=== PATIENT | male | born 1980 | race Caucasian/White ===

== ENCOUNTER 2022-08-18 08:35 | Emergency (ER) | payer OTHER, SELFPAY ==
--- NOTE | ~2022-08-18 | XR_ITS ---
EXAMINATION: XR CHEST CLINICAL INFORMATION: Chest pain COMPARISON: None available. TECHNIQUE: 2 views of the chest were obtained. FINDINGS: Cardiac and mediastinal silhouette is within normal limits. No evidence of focal consolidation, effusion, edema. No significant pneumothorax is seen. No acute osseous abnormality.. XR/XR chest 2V IMPRESSION: No evidence of acute pulmonary process.
--- NOTE | 2022-08-18 08:36 | ECG_ITS ---
Test Reason : SOB/CP Blood Pressure : / mmHG Vent. Rate : 115 BPM Atrial Rate : 115 BPM P-R Int : 172 ms QRS Dur : 100 ms QT Int : 328 ms P-R-T Axes : 062 019 028 degrees QTc Int : 453 ms Sinus tachycardia Otherwise normal ECG No previous ECGs available Referred By: Generic ED Physician Electronically Signed By:LEONELA GARZA
[2022-08-18 08:49] LABS: Glucose, Whole Blood 152 mg/dL (60-115)
[2022-08-18 08:55] VITALS: BP 154/92; PULSE 118; RESP 19; TEMP 36.6; O2SAT 98; BMI 30.3
--- NOTE | 2022-08-18 09:17 | ED.CHESTPAIN ---
HPI - Chest Pain General Chief Complaint: Chest Pain Stated Complaint: chest pain Time Seen by Provider: 08/18/22 09:16 Source: patient Mode of arrival: ambulatory Limitations: no limitations History of Present Illness HPI narrative: Patient is a 42-year-old male with no past history presenting with left sided chest pain and diaphoresis which began this morning. States he initially felt weak/lightheaded this morning but related this to not having had breakfast. Reports history of syncope in the distant past when he has not eaten. Was meeting family to drive to [place] and stopped at [employer] for a breakfast sandwich and coffee. States did not feel symptoms improve after eating. As he continued driving he developed intermittent left anterior chest pain and pressure radiating to left arm and began sweating. States episodes of pain lasted several seconds at a time. Denies abdominal pain, nausea, vomiting, diarrhea or constipation. Denies dyspnea. Denies dizziness. Denies syncope. Reports similar episodes of chest pain in the past but states today's episode was more severe and lasted for a longer period of time. MD complaint: chest pain Onset (ago): hour(s) Timing of current episode: episodic Prior episodes: Yes Onset: during rest Pain location: left chest Pain radiation: left arm Severity: moderate Pain scale (0-10): 6 Quality: heaviness Relieving factors: nothing Exacerbating factors: nothing Associated symptoms: diaphoresis Treatment prior to arrival: none Related Data Allergies Allergy/AdvReac Type Severity Reaction Status Date / Time No Known Allergies Allergy Verified 08/18/22 08:54 Review of Systems Review of Systems: As per HPI. Yes all other systems are reviewed and are negative Constitutional: Constitutional: Reports as per HPI [facility] Social History Social History Alcohol intake: current Alcohol intake frequency: a few times a week Smoked in Last 30 Days: No Use of substances other than those prescribed or required for medical reasons: No Advance Directives: No Advance Directives Information Provided: Yes Physical Exam Vital Signs: Vital Signs: Last Vital Signs Temp 97.9 F 08/18/22 14:00 Pulse 84 08/18/22 14:00 Resp 18 08/18/22 14:00 BP 146/89 H 08/18/22 14:00 Pulse Ox 96 08/18/22 14:00 O2 Del Method Room Air 08/18/22 14:00 BMI result Body Mass Index 30.3 Vital signs have been reviewed and appear to be correct. Blood pressure elevated. Heart rate tachycardic. Respiratory rate normal. Temperature normal. Oxygen saturation normal. Const: General: cooperative, healthy appearing and no acute distress Orientation/consciousness: oriented to person, oriented to place, oriented to time and patient oriented x3 Limitations: no limitations HEENT: Head: Yes normocephalic and Yes atraumatic Ears: external ears normal General nose exam: Normal external nose present Face and sinus: Yes face symmetric Mouth: oropharynx normal and moist mucous membranes Throat: Yes uvula midline Eyes: Pupils: Equal, round and reactive pupils present Neck: Neck: Yes normal visual inspection and Yes supple Chest: Chest palpation & inspection: normal inspection of the chest and normal palpation of entire chest wall Resp: Effort & Inspection: normal respiratory effort and able to speak in complete sentences Auscultation: clear to auscultation bilaterally Cardio: Rate: regular rate Rhythm: regular rhythm Heart sounds: S1 normal heart sound present and S2 normal heart sound present GI: Palpation (GI): Soft to palpation and nontender Auscultation: normoactive bowel sounds : General: Yes no CVA tenderness Back/Spine/Pelvis: Back: no CVA tenderness Skin: General skin exam: elasticity normal and turgor normal Neuro: General: oriented to person, oriented to place, oriented to time, patient oriented x3, moves all extremities, no focal motor deficits and CN's II-XI intact bilaterally Cranial nerves: Yes Equal, round and reactive pupils present Cognition (Neuro): normal cognition Extrem: General: Yes full ROM, Yes no pedal edema and Yes no calf tenderness Psych: Mental Status: mental status grossly normal Affect: normal affect Thought process: Normal thought process present Course Course Course Narrative: 10:09 Initial troponin negative, will obtain delta trop. Medical Decision Making Medical Decision Making [facility] [place] Narrative: Patient is a 42-year-old male with no past history presenting with left sided chest pain and diaphoresis which began this morning. On exam patient is awake, A+Ox3, nontoxic appearing, HR slightly elevated, BP elevated, VS otherwise WNL, pt afebrile, LS CTA throughout, HR regular, 2+ peripheral pulses, abdomen is soft and nontender, no pedal edema or calf tenderness. EKG shows sinus tachycardia, no evidence of STEMI. Concern for ACS, electrolyte abnomality, GERD. Less likely pneumonia, pneumothorax. Unlikely aortic dissection, esophageal rupture, PE (low risk [place]), cardiac tamponade, endocarditis/pericarditis. Plan: Labs including troponin, CXR, reassess 14:29 Delta troponin negative, HEART score 0. Feel patient is stable for discharge home. Will refer to cardiology as patient has had prior similar episodes. All results discussed and all questions answered. Return precautions discussed at bedside. Patient verbalized understanding of and agreement with plan. Differential Diagnosis Differential Diagnoses: The differential diagnosis associated with the presentation includes As above. Lab Data MDM Lab Attestation statement: I reviewed the patient's lab results. 08/18/22 09:32 08/18/22 09:32 Labs: Lab Results 08/18/22 08/18/22 08/18/22 Range/Units 08:45 09:32 09:32 WBC 5.5 (4.8-10.8) X10*3/uL RBC 5.22 (4.60-5.80) X10*6/uL Hgb 16.0 (14.0-18.0) g/dl Hct 47.9 (42.0-52.0) % MCV 91.8 (80.0-98.0) fL MCH 30.7 (27.0-33.0) pg MCHC 33.4 (31.0-36.0) g/dl RDW 13.2 (11.0-16.0) % Plt Count 229 (160-400) X10*3/uL MPV 10.0 (9.4-12.4) fL Immature Gran % (Auto) 0.7 H (0.0-0.4) % Neut % (Auto) 48.9 (45-73) % Lymph % (Auto) 31.7 (20-40) % [place] % (Auto) 13.6 H (2-11) % Eos % (Auto) 3.8 (0-4) % Baso % (Auto) 1.3 (0-2) % Lymph # (Auto) 1.7 (1.2-4.9) X10*3/uL [place] # (Auto) 0.7 (0.1-1.2) X10*3/uL Eos # (Auto) 0.2 (0.0-0.4) X10*3/uL Baso # (Auto) 0.1 (0.0-0.2) X10*3/uL Abs Immat Gran (auto) 0.04 H (0.00-0.03) X10*3/uL Absolute Neuts (auto) 2.7 (2.0-8.3) x10*3/uL Absolute Nucleated RBC 0.000 (0.0-0.012) X10*3/uL Nucleated RBC % (auto) 0.0 (0.0-0.2) /100WBC Sodium 143 (135-145) mmol/L Potassium 3.9 (3.3-5.1) mmol/L Chloride 107 (96-108) mmol/L Carbon Dioxide 25 (22-29) mmol/L Anion Gap 15 (12-20) BUN 10 (9-16) mg/dL Creatinine 1.05 (0.5-1.4) mg/dL Estim Creat Clear Calc 104.2 Estimated GFR > 60 POC Glucose 152 H (60-115) mg/dL Random Glucose 99 (60-115) mg/dL Calcium 9.7 (8.4-10.2) mg/dL Troponin I High Sens (<3.5-35.0) ng/L 08/18/22 08/18/22 Range/Units 09:32 13:45 WBC (4.8-10.8) X10*3/uL RBC (4.60-5.80) X10*6/uL Hgb (14.0-18.0) g/dl Hct (42.0-52.0) % MCV (80.0-98.0) fL MCH (27.0-33.0) pg MCHC (31.0-36.0) g/dl RDW (11.0-16.0) % Plt Count (160-400) X10*3/uL MPV (9.4-12.4) fL Immature Gran % (Auto) (0.0-0.4) % Neut % (Auto) (45-73) % Lymph % (Auto) (20-40) % [place] % (Auto) (2-11) % Eos % (Auto) (0-4) % Baso % (Auto) (0-2) % Lymph # (Auto) (1.2-4.9) X10*3/uL [place] # (Auto) (0.1-1.2) X10*3/uL Eos # (Auto) (0.0-0.4) X10*3/uL Baso # (Auto) (0.0-0.2) X10*3/uL Abs Immat Gran (auto) (0.00-0.03) X10*3/uL Absolute Neuts (auto) (2.0-8.3) x10*3/uL Absolute Nucleated RBC (0.0-0.012) X10*3/uL Nucleated RBC % (auto) (0.0-0.2) /100WBC Sodium (135-145) mmol/L Potassium (3.3-5.1) mmol/L Chloride (96-108) mmol/L Carbon Dioxide (22-29) mmol/L Anion Gap (12-20) BUN (9-16) mg/dL Creatinine (0.5-1.4) mg/dL Estim Creat Clear Calc Estimated GFR POC Glucose (60-115) mg/dL Random Glucose (60-115) mg/dL Calcium (8.4-10.2) mg/dL Troponin I High Sens < 2.7 < 2.7 (<3.5-35.0) ng/L Independent Interpretation I performed an independent interpretation of an: EKG and Plain X-Ray Interpretation: EKG: sinus tachycardia, rate 115bpm, normal CO and QT intervals, no evidence of STEMI I independently reviewed the x-ray and agree with the radiologist's interpretation. Radiology Impression Discussion of test interpretation with radiology: I have reviewed the radiologist's reading. Radiologist Impression: FINDINGS: Cardiac and mediastinal silhouette is within normal limits. No evidence of focal consolidation, effusion, edema. No significant pneumothorax is seen. No acute osseous abnormality.. XR/XR chest 2V IMPRESSION: No evidence of acute pulmonary process. External Record Review External record reviewed: Inpatient record, Office record and Outpatient record Scores Heart Score History: -0- slightly suspicious ECG: -0- normal Age: -0- < or = 45 Risk factory: -0- no risk factors known Troponin: -0- < or = normal limit Score: 0 Risk: 1.7% Discharge Plan Discharge Clinical Impression: Chest pain Patient Disposition: Home, Self-Care Instructions: Chest Pain (DC) Additional Instructions: You were evaluated in the emergency department today for chest pain. Your evaluation has shown no signs of medical conditions requiring emergent intervention at this time, however we recommend that you follow-up with your primary care physician as soon as possible for further testing as an outpatient. You are being referred to cardiology, please follow up with them as well. Return to the emergency department if you experience worsening or uncontrolled chest pain, shortness of breath, lightheadedness, feeling faint, loss of consciousness, nausea, vomiting, or any other concerning symptoms. Referrals: [facility] [Provider Group]
--- NOTE | 2022-08-18 09:34 | PC.NURSE ---
pt aox4, felt sudden onset chest pressure, slight nausea and diaphoresis while passenger in car. Symptoms improving but stil there. EKG done, labs drawn pt sinus tach on bedside monitor, appears anxious but calm. will ctm
[2022-08-18 09:39] LABS: MANUAL DIFF FLAG NO
[2022-08-18 09:40] LABS: Basophils Absolute Auto 0.1 X10*3/uL (0.0-0.2); Basophils Percent Auto 1.3 % (0-2); Eosinophils Absolute Auto 0.2 X10*3/uL (0.0-0.4); Eosinophils Percent Auto 3.8 % (0-4); Hematocrit 47.9 % (42.0-52.0); Imm Gran Abs Auto 0.04 X10*3/uL (0.00-0.03); Imm Gran Pct Auto 0.7 % (0.0-0.4); Lymphocytes Absolute Auto 1.7 X10*3/uL (1.2-4.9); Lymphocytes Percent Auto 31.7 % (20-40); Mean Corpuscular HGB Conc 33.4 g/dl (31.0-36.0); Mean Corpuscular Hemoglobin 30.7 pg (27.0-33.0); Mean Corpuscular Volume 91.8 fL (80.0-98.0); Monocytes Absolute Auto 0.7 X10*3/uL (0.1-1.2); Monocytes Percent Auto 13.6 % (2-11); Neutrophils Absolute Auto 2.7 x10*3/uL (2.0-8.3); Neutrophils Percent Auto 48.9 % (45-73); Platelet Count 229 X10*3/uL (160-400); Red Blood Count 5.22 X10*6/uL (4.60-5.80); Red Cell Distribution Width 13.2 % (11.0-16.0); White Blood Count 5.5 X10*3/uL (4.8-10.8)
[2022-08-18 09:52] LABS: Anion Gap 15 (12-20); Blood Urea Nitrogen 10 mg/dL (9-16); Calcium 9.7 mg/dL (8.4-10.2); Carbon Dioxide 25 mmol/L (22-29); Chloride 107 mmol/L (96-108); Creatinine Clr Calc Pharmacy 104.2; Estimated Glomerular Filt Rate > 60; Glucose Random 99 mg/dL (60-115); Potassium 3.9 mmol/L (3.3-5.1); Sodium 143 mmol/L (135-145)
[2022-08-18 10:02] LABS: Troponin-I High Sensitivity < 2.7 ng/L (<3.5-35.0)
[2022-08-18 10:21] VITALS: BP 143/95; PULSE 85; RESP 13; O2SAT 97
[2022-08-18 12:00] VITALS: BP 141/97; PULSE 94; RESP 22; O2SAT 98
--- NOTE | 2022-08-18 13:51 | PC.NURSE ---
repeat troponin drawn and sent to lab, vitals stable, pt reports that pressure in chest has subsided. will ctm
[2022-08-18 14:00] VITALS: BP 146/89; PULSE 84; RESP 18; TEMP 36.6; O2SAT 96
[2022-08-18 14:18] LABS: Troponin-I High Sensitivity < 2.7 ng/L (<3.5-35.0)
== END 2022-08-18 14:51 | disposition home or self-care (01) ==
PROVIDERS: Registered Nurse Emergency; Emergency Provider Student in an Organized Health Care Education/Training Program
DX: R07.9 Chest pain, unspecified (principal); R00.0 Tachycardia, unspecified
CPT/HCPCS: 36415; 71046; 80048; 82947; 84484; 85025; 93005; 99284; 99285